=== PATIENT | female | born 1995 | race African-American/Black ===

== ENCOUNTER 2017-05-15 02:00 | Inpatient (IN) | payer OTHER ==
--- NOTE | ~2017-05-15 | DS ---
Unit #: [id number] #: [id number] Patient: KACIE DORMAN [id number] [facility] [address] [place] [address] [id number] MR#: [id number] NAME: KACIE DORMAN ROOM: [facility] Age: 21 Sex: F Admission Date: 05/15/2017 : 1995 Discharge Date: 05/18/2017 Attending Physician: Adwoa Proctor M.D. Primary Care Physician: Haylie Pierce Aprn DISCHARGE SUMMARY IDENTIFYING DATA Ms. Dorman is a 21-year-old, single, female who is a resident of [place], [place], and was transferred to us from [facility]. DISCHARGE DIAGNOSES Psychiatric: Major depressive disorder, recurrent, moderate, without psychotic features. Medical: Gonorrhea. Stressors: Moderate psychosocial stressors. HISTORY OF PRESENT ILLNESS Please see initial psychiatric evaluation for details. PAST PSYCHIATRIC HISTORY Please see initial psychiatric evaluation for details. PAST MEDICAL HISTORY Please see initial psychiatric evaluation for details. HOSPITAL COURSE The patient was admitted to the adult psychiatric unit at [facility] raina Gutierrez and was oriented to the hospital environment. Routine p.r.n. medications were initiated, and she was started back on her home medications. Celexa was started as an antidepressant. She was closely monitored. She was taking the medications regularly and was tolerating them fairly well and was able to show a decent therapeutic response with improvement in depression and anxiety and was willing to continue treatment on an outpatient basis and as such, it was decided that she will be discharged home and will continue treatment on an outpatient basis. DISCHARGE MEDICATIONS Celexa 20 mg a day for depression. DISCHARGE CONDITION Stable. PROGNOSIS Fair. Dictated by... Adwoa Proctor M.D. Unit #: [id number] #: [id number] Patient: KACIE DORMAN IAA/modl TD: 05/18/2017 23:12 JOB #: [id number] DISCHARGE SUMMARY Page 1 of 1 X Adwoa Proctor MD X DISCHARGE SUMMARY
--- NOTE | ~2017-05-15 | PN ---
Unit #: [id number] #: [id number] Patient: KACIE BROWN [id number] [facility] [address] [place] [address] [id number] I MR#: [id number] NAME: KACIE BROWN ROOM: [facility] Age: 21 Sex: F Admission Date: 05/15/2017 : 1995 Attending Physician: Adwoa Proctor M.D. Admitting Physician: Adwoa Proctor M.D. Primary Care Physician: Shahnaz Marcial PROGRESS NOTES DATE May 16, 2017 DISCUSSION Ms. Brown is a 21-year-old female, who was seen today and chart was reviewed and the case was discussed with the staff. She has been anxious, withdrawn, and rather seclusive to herself. Meanwhile, she has been cooperative with the treatment recommendations and she has been taking the medications and tolerating them fairly well. MENTAL STATUS EXAMINATION Young female, who was casually dressed with fair personal hygiene and appears to be in no acute distress or discomfort. She was awake and alert with impaired attention and concentration. Her mood was anxious with a congruent affect. The patient denies any suicidal or homicidal ideation, and her also denies any auditory or visual hallucinations. Her insight and judgment remain slightly impaired. TREATMENT PLAN 1. We will continue her on her current medications and treatment protocol, and will monitor her response to the medications, and make further adjustments as needed. 2. We will continue to followup. Dictated by... Adwoa Proctor M.D. DARIEL/allen TD: 05/16/2017 12:09 JOB #: [id number] Unit #: [id number] #: [id number] Patient: KACIE BROWN [facility] PROGRESS NOTES Page 1 of 1 X Adwoa Proctor MD PROGRESS NOTE
--- NOTE | ~2017-05-15 | PA ---
Unit #: [id number] #: [id number] Patient: KACIE D[place]MAN CT [id number] [facility] [address] [place] [address] [id number] I MR#: [id number] NAME: KACIE DORMAN ROOM: P2 Age: 21 Sex: F Admission Date: 05/15/2017 : 1995 Date of Assessment: 05/15/2017 Attending Physician: Adwoa Proctor M.D. Admitting Physician: Adwoa Proctor M.D. Primary Care Physician: Haylie Pierce Aprn PSYCHIATRIC ASSESSMENT DATE OF SERVICE 05/15/2017. IDENTIFYING DATA Ms. Dorman is a 21-year-old single female, who is a resident of [place], [place], and was referred and transferred to us from [facility]. CHIEF COMPLAINT "I tried to kill myself by cutting with razor blades." HISTORY OF PRESENT ILLNESS Ms. Dorman is a 21-year-old female with history of mood disorder, who was brought to us as a transfer from [facility], where she was taken after she stated that she tried to kill herself by cutting herself with razor blades and reports feeling worthless and having no purpose and that she was found in [facility] parking lot after she called the police and told them where to find her body and was found with razor blades in the car and with superficial cuts on her arms and reports depression and anxiety, and she got STD diagnosed last night at the ER and that she gave her boyfriend STD and admits to cheating on boyfriend and reports that her STD diagnosis makes her not want to live and that she and her boyfriend have a 2 years old daughter. The patient reports a prior suicide attempt at the age of 17 by tying bricks on her feet and that she was going to walk into a euceda, but she chickened out and the ER nurse at [facility] confirmed the patient's story and that she found in the parking lot with razor blades and she called the police telling them where to find her body; however, she did not cut herself deep and just had superficial cuts. Her toxicology screen was negative and she has a history of suicidal ideations in the past as well and was seen to be a danger to self and recommendation for inpatient level of care for safety and stabilization was made and the patient was transferred to us. SUBSTANCE ABUSE HISTORY The patient denies any history of alcohol or drug abuse. PAST PSYCHIATRIC HISTORY The patient has had a history of psychiatric treatment in the past, and review of the medical records indicate that currently she is not active in any treatment program, is not seeing a psychiatrist, and is not taking any psychotropic medications. Unit #: [id number] #: [id number] Patient: KACIE DORMAN PAST MEDICAL HISTORY No acute or chronic medical illnesses. ALLERGIES No known medication allergies. PERSONAL AND SOCIAL HISTORY A 21-year-old female, who reports that she lives at home with her boyfriend and has a 2 years old daughter and is currently unemployed and has poor social support system. MENTAL STATUS EXAMINATION Young female, who was casually dressed with fair personal hygiene, appears to be in no acute distress or discomfort. She was awake and alert on interaction with intact orientation to time, place, and person. Her mood was anxious and depressed with a congruent affect. Her speech was slow and restricted in content. Her thought processes were disorganized with some looseness of associations and suicidal ideations. Her insight and judgment remain significantly impaired. DIAGNOSTIC IMPRESSION Psychiatric: Major depressive disorder, recurrent, moderate, without psychotic features. Medical: Gonorrhea. Stressors: Moderate psychosocial stressors. TREATMENT PLAN 1. The patient has presented with a history of mood disorder and has been decompensating and will need inpatient hospitalization for safety and stabilization. We will start her back on her home medications. We will adjust the medications and monitor response. 2. Supportive therapy was provided to the patient. 3. Safe, structured, and nourishing environment will be provided. ESTIMATED LENGTH OF STAY 5 to 7 days. ABILITY TO HELP SELF Limited. WILLINGNESS TO HELP SELF The patient appears to be willing to help self. STRENGTHS 1. Communicative. 2. Cooperative. PROBLEMS 1. Chronic dysphoric symptoms. 2. Poor social support system. DISCHARGE CRITERIA This will be contingent upon the patient's ability to show resolution of her depression and anxiety and her ability to stay safe to herself, particularly after discharge from the hospital. Dictated by... Unit #: [id number] #: [id number] Patient: KACIE DORMAN Veronica Ta/ceci TD: 05/16/2017 16:46 JOB #: [id number] PSYCHIATRIC ASSESSMENT Page 1 of 1 X Adwoa Proctor MD PSYCHIATRIC ASSESSMENT
--- NOTE | ~2017-05-15 | HP ---
Unit #: [id number] #: [id number] Patient: ANITA BROWN CT [id number] [place] [address] [id number] I MR#: [id number] NAME: ANITA BROWN ROOM: [facility] Age: 21 Sex: F Admission Date: 05/15/2017 : 1995 Attending Physician: Adwoa Proctor M.D. Admitting Physician: Adwoa Proctor M.D. Primary Care Physician: Haylie Pierce Aprn HISTORY AND PHYSICAL HISTORY OF PRESENT ILLNESS Anita is a 21 year old admitted to [address] [place] [address] with depression and self-harming behavior. She has been scratching her arms. PAST MEDICAL HISTORY Nothing significant. PAST SURGICAL HISTORY Nothing reported. ALLERGIES No known drug allergies. SOCIAL HISTORY She denies cigarettes, alcohol and illicit drug use. FAMILY HISTORY Medically noncontributory. REVIEW OF SYSTEMS CONSTITUTIONAL: No fever or chills. HEENT: Denies any sore throat, ear pain or runny nose. CARDIOVASCULAR: Denies chest pain, irregular heart rhythm or palpitations. CHEST: Denies shortness of breath or cough. No hemoptysis. GASTROINTESTINAL: Denies nausea, vomiting, diarrhea or chronic constipation. ENDOCRINE: Denies history of increased thirst or urination. No recent significant weight loss or gain. GENITOURINARY: Denies dysuria, frequency, or hematuria. SKIN: Denies any rashes. HEMATOLOGIC: Denies history of increased bleeding or bruising. MUSCULOSKELETAL: Denies any hot, swollen joints. No generalized muscle pain. NEUROLOGIC: Denies problems with vision or speech. No frequent, severe headaches. No numbness, tingling or weakness in any extremities. Denies loss of bladder or bowel control. CURRENT MEDICATIONS 1. Milk of Magnesia p.r.n. 2. Maalox p.r.n. 3. Tylenol p.r.n. PHYSICAL EXAMINATION Unit #: [id number] #: [id number] Patient: ANITA BROWN GENERAL: Alert, obese, in no apparent distress. VITAL SIGNS: Blood pressure 120/70, heart rate 80, respirations 16, temperature 98.6. WEIGHT: 182. HEIGHT: 5 feet 2 inches. SKIN: Warm and dry without rash or lesion. HEENT: Normocephalic. TMs not viewed. Oral and nasal passages clear. Conjunctivae clear. PERRLA. EOMs intact. NECK: Supple without lymphadenopathy or thyromegaly. HEART: Regular rate and rhythm without murmur. LUNGS: Clear. ABDOMEN: Soft, nontender. : Not done. EXTREMITIES: No evidence of cyanosis, clubbing or edema. Moves all without focal deficit. NEUROLOGICAL: Grossly within normal limits. Cranial Nerves: II: Visual powers are intact. III, IV AND : Extraocular movements are intact. Pupils are equal, round and reactive to light. V: Facial sensation is grossly normal. VII: Facial movements and expression are normal. VIII: Auditory acuity grossly intact. IX, X: Uvula is midline. Phonation is normal. XI: Patient shrugs shoulders and turns head normally. XII: Tongue protrudes in the midline. Sensory and Motor Function: Sensory and motor sensation is grossly normal. Motor: moves all extremities well. Coordination: Gait is normal. Deep Tendon Reflexes: Intact. IMPRESSION Psychiatric admission. RECOMMENDATIONS PSYCHIATRIC: Per psychiatrist. MEDICAL: See no contraindications to participate in facility's activities. MEDICAL PROGNOSIS Good. MEDICAL CONDITION Stable. Dictated by... Bibiana Vickers P.A.-C. for Veronica Jang/cecilia TD: 05/15/2017 19:57 JOB #: [id number] Unit #: [id number] #: [id number] Patient: ANITA BROWN CT HISTORY AND PHYSICAL Page 1 of 1 X Bibiana Vickers HISTORY AND PHYSICAL
--- NOTE | ~2017-05-15 | PN ---
Unit #: [id number] #: [id number] Patient: KACIE [place]OWN [place] [id number] [facility] [address] [place] [address] [id number] MR#: [id number] NAME: KACIE BROWN ROOM: [facility] Age: 21 Sex: F Admission Date: 05/15/2017 : 1995 Attending Physician: Adwoa Proctor M.D. Admitting Physician: Adwoa Proctor M.D. Primary Care Physician: Shahnaz Marcial NOTES DATE OF SERVICE 05/17/2017 DISCUSSION Ms. Brown is a 21-year-old female who was seen today. Chart was reviewed and case was discussed with the staff. She has been anxious and withdrawn though reports doing much better than yesterday and has been showing improvement in her depressive symptoms. She has been taking the medications and tolerating them fairly well. MENTAL STATUS EXAMINATION Young female who is casually dressed with fair personal hygiene, appears to be in no acute distress or discomfort. She was awake and alert with impaired attention and concentration. Her mood is anxious with congruent affect. She denies any suicidal or homicidal ideations. Her insight and judgment remain slightly impaired. TREATMENT PLAN 1. We will continue her on her current treatment protocol. We will monitor her response to the medications and make further adjustments as needed. 2. We will continue to follow up. Dictated by... Adwoa Proctor M.D. IAA/bzg TD: 05/18/2017 09:21 JOB #: [id number] [facility] PROGRESS NOTES Page 1 of 1 X Adwoa Proctor MD PROGRESS NOTE
== END 2017-05-18 15:05 | disposition home or self-care (01) | DRG 885 ==
LOC: P2L 11:41
DX: F33.1 Major depressive disorder, recurrent, moderate (principal); A54.9 Gonococcal infection, unspecified